=== PATIENT | female | born 1985 | race American Indian/Alaskan Native ===

== ENCOUNTER 2017-07-15 13:36 | Outpatient (CLI) | payer MEDICAID ==
[2017-07-15 14:24] VITALS: BP 109/58
--- NOTE | 2017-07-15 15:51 | Ultrasound Report ---
ULTRASOUND BIOPHYSICAL PROFILE: History: well being Technique: Transabdominal ultrasound with Doppler interrogation. 2 - breathing movements 2 - movements 2 - posture and tone 2 - Qualitative amniotic fluid volume 8 - TOTAL SCORE OF POSSIBLE 8 Heart Rate (bpm) 159
== END 2017-07-15 16:50 | disposition home or self-care (01) ==
LOC: TRG 13:36 → LD 14:43 → TRG 16:50
PROVIDERS: ATTEND Obstetrics & Gynecology
DX: O48.0 Post-term pregnancy (principal); Z3A.41 41 weeks gestation of pregnancy
CPT/HCPCS: 59025; 76819

== ENCOUNTER 2017-07-16 15:15 | Outpatient (CLI) | payer MEDICAID ==
[2017-07-16 16:13] VITALS: BP 121/74
== END 2017-07-16 16:49 | disposition home or self-care (01) ==
LOC: TRG 15:15
PROVIDERS: ATTEND Obstetrics & Gynecology
DX: O48.0 Post-term pregnancy (principal); Z3A.31 31 weeks gestation of pregnancy
CPT/HCPCS: 59025

== ENCOUNTER 2017-07-17 23:17 | Inpatient (IN) | payer MEDICAID ==
[2017-07-18] MEDS ORDERED: SUBLIMAZE ONE (04:00)
[2017-07-18] MEDS ORDERED: ZOFRAN IV PRN ×2 (04:08→05:04)
[2017-07-18] MEDS ORDERED: MINERAL OIL PO PRN (04:08)
[2017-07-18] MEDS ORDERED: BRETHINE SUB-Q PRN (04:08)
[2017-07-18] MEDS ORDERED: BRETHINE IVP PRN (04:08)
[2017-07-18] MEDS ORDERED: ePHEDrine SULFATE IV PRN (04:08)
[2017-07-18] MEDS ORDERED: POLYCILLIN/NS 2 GM/100 ML 2 GM/100 ML BAG IV ONE (04:08)
[2017-07-18] MEDS ORDERED: XYLOCAINE 2% INFILTRATI ONE (04:08)
[2017-07-18] MEDS ORDERED: SUBLIMAZE IV ONE (04:08)
--- NOTE | 2017-07-18 04:14 | History and Physical Report ---
History of Present Illness Date of examination: 07/18/17 Date of admission: 07/17/17 23:17 Chief complaint: Painful contractions History of present illness: 32-year-old at 41+4 weeks presents with induction, she is a [facility]/ [employer] patient. course has been unremarkable per patient. On labor and delivery however patient noted to be 6 cm and has progressed rapidly to 8-9 cm. She declines an epidural Past History Past Medical History: no pertinent history Past Surgical History: no surgical history [employer] History: denies: chlamydia, gonorrhea, hepatitis B, hepatitis C, herpes, HIV , syphilis Social history: denies: smoking - Obstetrical History Expected Date of Delivery: 07/07/17 Actual Gestation: 41 Week(s) 4 Day(s) : 5 Para: 3 Medications and Allergies Allergies Allergy/AdvReac Type Severity Reaction Status Date / Time No Known Allergies Allergy Unverified 07/15/17 13:51 Home Medications Medication Instructions Recorded Confirmed Last Taken Type No Known Home Medications [No 07/16/17 07/16/17 Unknown History Reported Home Medications] Review of Systems Constitutional: no fever, no chills, no fatigue, no weakness, no chronic headaches Cardiovascular: no chest pain, no orthopnea, no syncope, no lightheadedness, no shortness of breath, no dyspnea on exertion, no high blood pressure Respiratory: no shortness of breath, no dyspnea on exertion Gastrointestinal: no abdominal pain, no nausea, no vomiting Genitourinary: contractions, no vaginal bleeding, no leakage of fluid - Vital Signs Vital signs: Vital Signs Pulse BP 82 118/69 07/18/17 00:31 07/18/17 00:31 Temp Pulse Resp BP Pulse Ox 97.7 F 89 118/69 100 07/18/17 00:44 07/18/17 04:12 07/18/17 00:44 07/18/17 04:12 - Physical Exam Abdomen: Positive: normal appearance, soft. Negative: distention, tenderness, guarding, rigidity Genitourinary (Female): Positive: normal external genitalia Uterus: Positive: enlarged (EFW ~ 3500) Adnexa: both: normal Extremities: Positive: normal - Obstetrical FHR: category 1 Cervical Dilatation: 8.5 station: 0 Results All other labs normal. Assessment and Plan A: 32-year-old at 41+4 in active labor -Cat 1 tracing -Declines epidural P: -Continue expectant management -Anticipate normal vaginal delivery - Patient Problems (1) 41 weeks gestation of Current Visit: Yes Status: Acute (2) Active labor at term Current Visit: Yes Status: Acute
[2017-07-18 04:21] LABS: Hematocrit 35.2 % (30.3-42.9); Hemoglobin 11.7 gm/dl (10.1-14.3); Mean Corpuscular HGB Conc 33 % (30-34); Mean Corpuscular Hemoglobin 30 pg (28-32); Mean Corpuscular Volume 91 fl (79-97); Red Blood Count 3.89 M/mm3 (3.65-5.03)
[2017-07-18 04:27] LABS: Platelet Count 172 K/mm3 (140-440)
[2017-07-18] MEDS ORDERED: LACTATED RINGERS 1,000 ML IV SCH (05:00)
[2017-07-18] MEDS ORDERED: PITOCin/NS 20 UNIT/1000ML DRIP 20 UNITS/1,000 ML BAG IV SCH ×2 (05:00→06:00)
[2017-07-18] MEDS ORDERED: PITOCin/NS 30 UNIT/500ML 30 UNITS/500 ML BAG IV SCH (05:00)
--- NOTE | 2017-07-18 05:03 | Procedure Note ---
OB Delivery Note - Delivery Date of Delivery: 07/18/17 Surgeon: NINO ISAAC Estimated blood loss: 100cc - Vaginal Delivery presentation: vertex Delivery position: OA Intrapartum events: precipitous labor- <3hr Delivery induction: none Delivery monitor: external FHT, external uterine Route of delivery: Delivery placenta: spontaneous Delivery cord: 3 umbilical vessels Episiotomy: none Delivery laceration: 2nd degree Delivery repair: vicryl Anesthesia: local - Infant A at 1 minute: 8 at 5 minutes: 9 Gender: Female (time of delivery is 4:44 AM, infant weight 7 lbs. 9 oz. or 3435 g)
[2017-07-18] MEDS ORDERED: DULCOLAX PR PRN (05:04)
[2017-07-18] MEDS ORDERED: PHENERGAN PO PRN (05:04)
[2017-07-18] MEDS ORDERED: BENADRYL PO PRN (05:04)
[2017-07-18] MEDS ORDERED: PHENERGAN PR PRN (05:04)
[2017-07-18] MEDS ORDERED: TUCKS PAD TP PRN (05:04)
[2017-07-18] MEDS ORDERED: TYLENOL PO PRN (05:04)
[2017-07-18] MEDS ORDERED: MILK OF MAGNESIA PO PRN (05:04)
[2017-07-18] MEDS ORDERED: LANSINOH TP PRN (05:04)
[2017-07-18] MEDS ORDERED: NORCO 5/325 PO PRN (05:04)
[2017-07-18] MEDS ORDERED: SENOKOT S PO SCH (06:00)
[2017-07-18] MEDS ORDERED: SODIUM CHLORIDE FLUSH SYRINGE 10 ML IV NR (06:00)
[2017-07-18] MEDS ORDERED: POLYCILLIN/NS 1 GM/50 ML 1 GM/50 ML BAG IV SCH (08:09)
[2017-07-18] MEDS: FEOSOL PO SCH (09:30)
[2017-07-18] MEDS: MOTRIN PO SCH ×2 (09:30→18:21)
[2017-07-18] MEDS: COLACE PO SCH (09:30)
[2017-07-18] MEDS ORDERED: PRENATAL VITAMIN PO SCH (10:00)
[2017-07-18 17:05] LABS: Hematocrit 31.7 % (30.3-42.9); Hemoglobin 10.6 gm/dl (10.1-14.3)
[2017-07-19] MEDS: MOTRIN PO SCH ×2 (00:12→06:00)
[2017-07-19] MEDS: FEOSOL PO SCH (00:12)
[2017-07-19] MEDS: COLACE PO SCH (00:12)
--- NOTE | 2017-07-19 12:41 | Progress Note ---
Assessment and Plan A: PPD #1 - stable P: Discharge home today Subjective - Subjective Date of service: 07/19/17 Principal diagnosis: Patient reports: appetite normal [place]: doing well Objective - Vital Signs Latest vital signs: Vital Signs Temp Pulse Resp BP Pulse Ox 07/19/17 09:15 98.6 F 80 18 106/70 07/19/17 01:10 98.8 F 74 116/73 07/18/17 16:35 98.4 F 84 18 112/73 98 Intake and Output 07/18/17 07/19/17 07/19/17 22:59 06:59 14:59 Intake Total 480 360 240 Balance 480 360 240 Intake: Oral 480 240 Intake, Free Water 360 Other: Total, Intake Amount 480 240 # Voids Void 3 2 # Bowel Movements 0 - Exam Breasts: Present: deferred Cardiovascular: Present: Regular rate Lungs: Present: Clear to auscultation Abdomen: Present: soft Vulva: both: normal Uterus: Present: fundal height below umbilicus Extremities: Present: normal Deep Tendon Reflex Grade: Normal +2
--- NOTE | 2017-07-19 12:42 | Discharge Summary ---
Providers - Providers Date of Admission: 07/17/17 23:17 Date of discharge: 07/19/17 Attending physician: DANA MCGHEE MD Primary care physician: DANA MCGHEE MD Hospitalization Reason for admission: induction of labor Delivery: Laceration: 2nd degree Other procedures: none Discharge diagnosis: IUP at term delivered [place] baby: female Condition at discharge: Good Disposition: DC-01 TO HOME OR SELFCARE Plan - Discharge Medications Prescriptions: HYDROcodone/APAP 5-325 [[place] 5/325] 1 each PO Q6HR PRN #7 tablet PRN Reason: Pain Ibuprofen [Motrin 600 MG tab] 600 mg PO Q8H PRN #30 tablet PRN Reason: Pain Multivitamin with Iron [Multivitamins with Iron] 1 each PO DAILY #30 tablet - Provider Discharge Summary Activity: routine, no sex for 6 weeks, no strenuous exercise Diet: routine Instructions: routine Additional instructions: [] Smoking cessation referral if applicable(refer to patient education folder for contact #) [] Refer to [facility]'s [facility] Booklet Call your doctor immediately for: * Fever > 100.5 * Heavy vaginal bleeding ( >1 pad per hour) * Severe persistent headache * Shortness of breath * Reddened, hot, painful area to leg or breast * Drainage or odor from incision. * Keep incision clean and dry at all times and follow doctor's instructions regarding bathing/showering - Follow up plan Follow up: DANA MCGHEE MD [Primary Care Provider] - 6 Weeks
[2017-07-19 14:33] VITALS: BP 124/79
== END 2017-07-19 15:00 | disposition home or self-care (01) | DRG 775 ==
LOC: LD 23:17 → OB 07-18 07:02
PROVIDERS: ADMIT Obstetrics & Gynecology; ATTEND Obstetrics & Gynecology
PROC: 10E0XZZ Delivery of Products of Conception, External Approach (ICD-10-PCS; principal; 2017-07-18)
PROC: 0KQM0ZZ Repair Perineum Muscle, Open Approach (ICD-10-PCS; 2017-07-18)
DX: O62.3 Precipitate labor (principal); Z37.0 Single live birth; Z3A.41 41 weeks gestation of pregnancy; O70.1 Second degree perineal laceration during delivery
CPT/HCPCS: 36415; 85014; 85018; 85027; 86592; 86850; 86900; 86901; J0290; J2590; J3010